=== PATIENT | male | born 1960 | race Caucasian/White ===

== ENCOUNTER 2017-04-15 06:07 | Inpatient (IN) | payer OTHER ==
[~2017-04-15] VITALS: Ht 188 cm; Wt 92.6 kg
--- NOTE | ~2017-04-15 | DS ---
PATIENT'S NAME: HAMILTON SORTO [facility] AGE: 56 Y [address] ROOM: [id number] [place], [place] [id number] LOCATION: GICU ADMIT DATE: 04/15/2017 Discharge Summary DISCHARGE DATE: 04/18/2017 FAMILY PHYSICIAN: Marcus Simon MD ATTENDING PHYSICIAN: Mal Nava V PRINCIPLE FINAL DIAGNOSIS: T3, N0, MX squamous cell carcinoma, right tonsil base of tongue. POSTOPERATIVE DIAGNOSIS: T3, N0, MX squamous cell carcinoma, right tonsil base of tongue. OPERATION/PROCEDURE: 1. Direct laryngoscopy with biopsy, right tonsil base of the tongue mass. 2. Emergent tracheostomy. CONSULT: Speech Pathology. COMPLICATIONS: None. DESCRIPTION OF HOSPITAL COURSE: The patient was admitted to [facility] on 04/15/2017 after a scheduled outpatient direct laryngoscopy with biopsy. The patient was noted difficult intubation with evidence of significant upper airway obstruction. Emergent tracheostomy was performed, and the patient was admitted to PACU. The patient's postoperative course was uncomplicated. Started on a clear liquid diet on 04/16/2017. The patient's diet was advanced. A cuffed trach tube was changed to a cuff with #6 fenestrated trach tube on 04/17/2017. The patient tolerated soft regular diet, was discharged home on 04/18/2017 after appropriate trach care teaching, ordering of trach supplies, and home health consult. The patient was scheduled for Radiation Therapy/Medical Oncology consultation as an outpatient. He was to follow up with Dr. Nava in 1 week. MAL NAVA MD TVC/modl /[id number] d: 04/26/17 0240 t: 05/20/17 0957, DISCHARGE SUMMARY
--- NOTE | ~2017-04-15 | OR ---
PATIENT'S NAME: HAMILTON SORTO [facility] AGE: 56 Y [address] ROOM: [place] [address] LOCATION: GICU ADMIT DATE: 04/15/2017 OR/Procedure Report DISCHARGE DATE: FAMILY PHYSICIAN: OTONIEL MORRIS MD ATTENDING PHYSICIAN: Mal Nava V SURGEON: Mal Nava MD MECHANICAL PRODUCT ENGINEER: Zbigniew Ríos MD-Student, PGY5. DATE OF PROCEDURE: 04/15/2017 PREOPERATIVE DIAGNOSIS: Probable T3 N0 squamous cell carcinoma, right tonsil base of tongue. POSTOPERATIVE DIAGNOSES: 1. Probable T3 N0 squamous cell carcinoma, right tonsil base of the tongue. 2. Upper airway obstruction. OPERATION/PROCEDURE: 1. Emergency tracheostomy. 2. Direct laryngoscopy with biopsy. 3. Rigid esophagoscopy. ANESTHESIA: General endotracheal anesthesia. ESTIMATED BLOOD LOSS: Minimal. COMPLICATIONS: None. FINDINGS: The patient had large exophytic mass occupying the right tonsil extending to the right base of tongue with extensive base of tongue fibrosis. DESCRIPTION OF PROCEDURE: The patient was taken to the operating room, laid in supine position. The patient underwent general mask anesthesia. The patient was unable to be intubated. Using the conventional techniques, videoscope attempted bronchoscopy per Dr. Nava was unsuccessful. It was elected to perform an urgent trach. After further attempts, 6.0 endotracheal tube was able to be passed. Upon intubation, it was elected to do emergent tracheostomy due to his significant potential risks for airway compromise. The patient's neck was prepped and draped in usual sterile fashion using Betadine solution. Proposed incision line marked and infiltrated with 2% lidocaine with epinephrine solution. Approximately, 2 cm horizontal neck incision was performed using #15 blade. Subcutaneous tissues were divided using #15 blade Bovie electrocautery. Strap muscles were divided in the midline and reflected right and left respectively. The thyroid isthmus was divided using Bovie electrocautery. Trach hook was placed within the cricoid PATIENT'S NAME: HAMILTON SORTO [facility] AGE: 56 Y [address] ROOM: [place] [address] LOCATION: GICU ADMIT DATE: 04/15/2017 OR/Procedure Report DISCHARGE DATE: FAMILY PHYSICIAN: OTONIEL MORRIS MD ATTENDING PHYSICIAN: aMl Nava V cartilage. Trachea was reflected superiorly. The inferiorly based flap was then performed using a #11 blade curved Rawls scissors. The flap was secured to the inferior skin with 0 Tycron sutures. A #6 balloon fenestrated trach was then placed under direct vision without difficulty. The balloon was inflated and trach secured using 2-0 silk suture trach straps. The patient tolerated the procedure well. Neosporin ointment and trach dressing were placed. The table was rotated to 90 degrees. The right shoulder roll was placed. Head was placed in a sniffing position. Laryngoscope was inserted within the oropharynx, directed down into the left lateral pharyngeal wall. The left piriform sinus noted to be within normal limits. Vallecula was noted to be abnormal extending past the midline. The patient had large exophytic mass occupying the right tonsil extending to the base of tongue infiltrating into the base of tongue. Mass was suspected approximately 6 to 8 cm in size. Posterolateral pharyngeal wall was mobile without significant mass or lesion. The right piriform sinus was visualized to be within normal limits. Epiglottis was edematous and swollen. The area of epiglottic folds were without abnormality. The scope was withdrawn. Rigid esophagoscope was inserted within the oral cavity, directed down into the left lateral pharyngeal wall. It was directed into the left piriform into the opening of the esophagus due to significant difficulty with hyperextension of the neck. The soft scope was passed through the cricopharyngeus into the upper cervical esophagus. This was noted to be normal. The soft scope was withdrawn. No significant mucosal abnormalities. Again, there was a significant amount of the intra-arytenoid area epiglottic edema. Esophagoscope was withdrawn. Laryngoscope was placed back in the oral cavity. Several biopsies were obtained of the right tonsil. The patient tolerated the procedure well. The patient was aroused and discharged from the operating room to the recovery room with #[address] trach in place. MD AMAYA SOLORIO/yoanal /[id number] d: 04/15/17 2246 t: 04/25/17 1844, OPERATIVE SUMMARY
[~2017-04-15 06:07] MED LIST: ASPIRIN (CHILDR81 MG PO; FISH OIL 1,0001 EACH PO; GLUCOSAMINE CH1 EAC2 PO; OMEPRAZOLE40 MG PO; THERA-VITE W/ B1 TAB PO
[2017-04-15] MEDS ORDERED: ULTRAM50 MG PO (06:49)
[2017-04-15] MEDS ORDERED: TYLENOL325 MG PO (06:49)
[2017-04-15] MEDS ORDERED: CHLORASEPTIC MA30 ML PO (06:50)
[2017-04-15] MEDS ORDERED: TYLENOL EXTRA500 MG PO (06:51)
--- NOTE | 2017-04-15 16:53 | NUR ---
PT A/OX3, NO FOCAL DEFICITS, DENIES ANY N/T. VSS, AFEBRILE, NO EDEMA, PULSES 2+ T/O, DENIES ANY CP. 28% TM WITH FENESTRATED TRACH PLACED PER MD, DRSG CHANGED WITH MODERATE AMT OF BLOODY DRNG, PT HAS STRONG COUGH, AND DENIES ANY SOB OR ROMERO. VOIDS PER BR, NPO AT THIS TIME. BS PRESENT, NO BM. PIV TO L) FA WITH NS WITH KCL AT 110MLS/HR. DEMEROL AND PHENERGEN GIVEN X1 AND MS 2MG GIVEN X1 FOR THROAT PAIN WITH RELIEF HAD.
--- NOTE | 2017-04-16 05:56 | NUR ---
PT RESTING THROUGHOUT SHIFT. MORPHINE GIVEN FOR PAIN X2 DOSES THIS SHIFT. AMBULATING IN ROOM FOR THIS RN. TRACH CONTINUES TO HAVE THICK BLOODY SECRETIONS; TRACH CARES PERFORMED, SUCTION PRN; PATIENT TOLERATED WELL. MARII AUSTIN RN
--- NOTE | 2017-04-16 15:27 | NUR ---
Significant Event: Patient is A/Ox3. C/O some numbness-tingling on tip of tongue, gotten a little better throughout the day. SR-SB with HR low 50's-56. VS WNL. Trach mask at 28%, spo2 >97%. Lungs asculated clear/diminished throughout. Active bowel sounds, no BM this shift. Voids per urinal. Standby assist to BR. Afebrile. PRN [place] 1 tab given x2. PRN 2mg morphine given x2. Deep suctioned trach x1 time, some bloody drainage present. Follow up: Needs trach care teaching. Care management following up with needs to do home trach care.
--- NOTE | 2017-04-16 16:31 | NUR ---
Reviewed [facility] chart. It appears that he lives in [place] with his . He has [facility] listed as his insurance carrier. I noticed in his progress notes that MD is planning on sending him home with a trach. This is new for him. I talked with Maria Del Carmen SALVADOR and Courtney RN about making sure that his trach teachings were started here as that is what MD had ordered. I let them know that I would meet with Mateo later today or tomorrow to talk with him about him going home with [facility] so they could help him with trach cares and teachings or if he felt like he could manage at home on his own based on his teaching here. I also spoke with Humera ECHOLS and asked that she work with nursing to make sure that they were doing teachings with Mateo on how to care/suction his new trach so if he did go home without [facility], he would know what to do and how to care for it. I obtained a list of trach needs for the home setting for MD to use a guideline for order filling out scripts when José went to go home. CM to continue to follow and assist.
--- NOTE | 2017-04-17 03:09 | NUR ---
Significant Event: PATIENT IS A/OX3. FOLLOWS COMMANDS. VSS. SR-SB 50'S-70'S. SBP 120'S-130'S. TRACH MASK AT 28%, O2 SATS >96%. ACTIVE BS. NO BM DURING SHIFT. VOIDS PER BR. AFEBRILE. PRN NORCO GIVEN X2. MORPHINE GIVEN X1. NO SIGNIFICANT EVENTS DURING SHIFT. Follow up: CARE MANAGEMENT FOLLOWING UP ON HOME WITH TRACH CARE SUPPLIES AND NEEDS TRACH CARE TEACHING. PRINTED TRACH INFORMATION DURING SHIFT, NEEDS TO BE EXPLAINED TO PATIENT, WHILE PT IS AWAKE.
--- NOTE | 2017-04-17 16:47 | NUR ---
Call from Noelle SALVADOR this morning wanting to know where I was at on lining up supplies and HHC for Mateo. Let her know that I hadn't go to talk wiht Mateo yet, but when I did I would let her know. I did ask of any trach teachings had been done yet and to her knowledge, none had been started. I let her know that this needed to be started by RN and RT as he was planning on being dismissed on Saturday and it was important that he knows how to care for it. She states she is working with RT and ST to do teaching. I later came up to the floor, reviewed Porfirio' chart. No scripts for trach supplies have been filled out. I introduced myself and CM role to Mateo. He lives in [place] with his and is planning on returning there upon dismissal. I talked with him about going home with the trach and that staff was supposed to be working with him on cares and teaching him about it. He says that he has only had one person see him, ST, and then he was just given handouts of papers to read and that is all. I let him know I would be addressing this with staff to make sure that he was getting more teachings than that. We talked about HHC and he says that he is open to having HHC. He has no prefernce on which HHC agency we use. I made a referral to [facility]. Faxed/called in referral to Jaimee after leaving Porfirio' room. Will call her back tomorrow with more of an update on his status of dismissal date as well. Also let Mateo know I would call around to DME carriers here in town to see which ones offered trach supplies that he would need as he has no preference on where he gets supplies from. He tells me that his will be up tonight and staff is supposed to work with him then on doing teachings/cares with his and him. He denies any other questions, needs or concerns. Upon leaving his room. I spoke with his RN Noelle, let her know I was working on getting HHC lined up and also finding a DME facility in town that offered the trach supplies that he needed. Also confirmed with her that he and his were going to get training tonight. Noelle tells me that she plans on doing teachings with him and if she is still here tonight when arrives or passing it along to the night RN that cares/teachings will need to be addressed. I phoned over to [facility], they tell me that they do not carry trach supplies. I phoned over to [facility], talked with Joanie, she says that they do carry trach supplies, but it would need to be pre-authed by his insurance, which she would do if I faxed her the facesheet and paperwork would need to be filled out by MD. I faxed her over [facility] facesheet to start working on the pre-auth and she faxed me over the needed paperwork to put on the chart for MD to fill out. Paperwork was obtained and placed on the chart along with a detailed note for MD to make sure it was filled out correctly. F2F was also left on the chart for him to fill out for RN/ST needs and sign as well as a list of trach supplies that would need scripts wrote out. MODESTO Dunne phoned to several differnt people to see if was going to round yet today to do the paperwork, but was told it was his day off today so he wouldn't be around until tomorrow to do any of the needed paperwork or filling out any scripts. I updated MODESTO Dunne and MODESTO Drake to all of the above. Called to Humera in [place] to make sure that she was working with RNs to do teachings and also make sure that she was working on any home O2 needs that he might have when he is ready to dismiss. She says that she will check into things. CM to continue to follow and assist.
--- NOTE | 2017-04-17 18:56 | NUR ---
Significant Event:Up in chair. A/Ox3. Petros given for discomfort. Trach mask at 28% Sats >90%. LS coarse clears with cough. Expectorates bloody drng and now greenish with blood tinge. Foul odor noted. #6 shiley cuffed intact. Trach drsg taught to patient. Patient did well, will need one more follow up drsg change performed by patient for reassurance. Abd soft with active bowel tones passing gas. No stool.
--- NOTE | 2017-04-18 05:24 | NUR ---
Significant Event: Patient is alert and oriented x 3. Up independently in room. VSS. Tracheostomy intact. 6 manoj, cuffed. Patient coughing up green, thick mucous. Voiding well. Left hand IV with D5 1/2 NS with 20 meq of KCL running at 110 ml/hr. [place] given for pain x 3, last at 0407. On regular diet. No BM since 04/14, passing gas. No stool softners ordered, note on chart for MD to address. Patient is cooperative with cares. Follow up: Home on Saturday. Needs more teaching on trach suctioning and dressing changes.
--- NOTE | 2017-04-18 11:07 | NUR ---
LATE ENTRY: A - PT SCREENED D/T MST. HAD EMERGENT TRACH 04/15. POSSIBLE DISCHARGE TODAY. PT REPORTED 15# WEIGHT LOSS, TIME FRAME UNK. UBW OF 220# VS CBW 198#. HT: 185.42 CM, WT: 198#, BMI: 26.2, IBW: 83.6 KG, %IBW: 108% NO LABS. MEDS: DEMEROL. DIET: REGULAR WITH ENSURE ENLIVE TID. HAD 100% OF BREAKFAST AND LUNCH 04/17, ORAL SUPPLEMENT 100% X1 NOTED. PT REPORTED GOOD APPETITE AND LIKES ENSURE ENLIVE. DOES DRINK SOME KIND OF PROTEIN SHAKE AT HOME. LEFT SOME ORAL SUPPLEMENT COUPONS WITH PATIENT. HAVING BREAKFAST DURING VISIT, DEFERRED NFPE. EST NEEDS: [id number] KCAL (25-30 KCAL/KG IBW), 84-101 GRAMS PROTEIN (1-1.2 GRAMS/KG IBW), FLUID NEEDS: 1ML/KCAL D - UNINTENTIONAL WEIGHT LOSS RELATED TO ALTERED APPETITE SECONDARY TO DIAGNOSIS EVIDENCED BY 15# WEIGHT LOSS PER PT. I - PT AGREED TO ENSURE ENLIVE TID. M/E - GOAL: PT WILL CONTINUE TO TOLERATE >75% OF MEALS AND AT LEAST ONE ORAL SUPPLEMENT PER DAY IN 5-7 DAYS.
--- NOTE | 2017-04-18 13:31 | NUR ---
Significant Event: PT ALERT AND ORIENTED X3. ABLE TO MAKE NEEDS KNOWN. NEURO INTACT. UP WITH STAND-BY ASSIST IN ROOM. VOIDING WITHOUT DIFFICULTY. LAST BM ON 04/14; BOWEL SOUNDS PRESENT X4; STATES THAT HE IS NOT UNCOMFORTABLE. FAIR APPETITE. TRACH INTACT; TRACH TEACHING DONE PER RESPIRATORY THERAPIST AND THIS RN AND PT VERBALIZED UNDERSTANDING. IV TO L)HAND INTACT. PRN NORCO HELPING WITH PAIN. SAW THE PT AND WROTE ORDERS FOR THE PT TO BE DISMISSED HOME TODAY. TO SEE THE PT PRIOR TO DISMISSAL. WAITING TO HEAR FROM CARE MANAGEMENT REGARDING TRACH SUPPLIES AND APPROPRIATE SCRIPTS. Follow Up: PLAN TO DISMISS TO HOME TODAY
--- NOTE | 2017-04-18 14:56 | NUR ---
VM from this morning letting me know that he had filled out all the needed paperwork for Mateo to go home with his trach supplies and also filled out the information for HHC. I worked with Mckayla(ST), Viral(RT), Andrew Huynh(RT Medical Record Consultant), Courtney Vásquez(CM Director), Vibha(ICU certified performance technologist) and Mckayla (Primary RN) with trying to get all the needed information gathered to get Porfirio' dismissal figured out. I called over to [facility], Joanie was gone so I talked with Rosalinda. Rosalinda tells me that they got the fax I sent over with the completed paperwork and they are working with to get the other needed information over to them so they can submit it to Porfirio' insurance and then once that is done she will call me back. Nursing, RT and ST are all working on training/teachings/cares with Mateo to ensure that he can care for his trach when he goes home. Viral with RT was following up with in re:if Mateo needed to go home with O2 or not. Viral later told me that he talked with and the home O2 was not going to be needed. Faxed over dismissal instructions, F2F and other information to [facility], [phone]. I called and left a VM with Jaimee jesse:his dismissal. She was out of the office so I called over to the [facility] Office, talked with Rebecca as Silvaan was out on a home visit, confirmed with Rebecca that [facility] would follow for HH needs. Later called and talked with Silvana, she says that they will do a phone visit with him on Saturday (tomorrow) and then admit him on Saturday. Let her know that was fine. Relayed this with RN Mckayla who was going to share it with Mateo and his when she went over dismissal instructions with him. Talked again with Rosalinda at [facility], she says that they have got insurance approval and the supplies are all ready for to pick up man. I phoned and talked with his , she is on her way to town so she will go and pick up man all the supplies. I gave her my contact information for any additional questions she might have. Went up to the floor, MODESTO Dunne was working on getting his follow up appointments made for him. Viral ECHOLS was doing teachings with Mateo and . I stopped in and gave them the number for [facility] and [facility] incase they would need this for down the road. They denied any other questions, needs or concerns. CM to continue to follow and assist. Plan home with [facility] and support.
[2017-04-18] MEDS ORDERED: NORCO 5-325 TA1 EACH PO (15:02)
[2017-04-18] MEDS ORDERED: KEFLEX500 MG PO (15:03)
--- NOTE | 2017-04-18 17:21 | NUR ---
D: EMERGENT TRACHEOTOMY I: OX R: CONTACTED DR MENENDEZ ABOUT WHETHER OR NOT HE WANTED PT TO GO HOME WITH HUMIDIFICATION, DR MENENDEZ SAID HE DID NOT WANT HIM TO, DISCUSSED WITH PT ABOUT SUCTIONING HIS TRACH, WITNESSED PT DO THIS HIMSELF & ANSWERED QUESTIONS HE HAD P: PT WAS DISMISSED HOME
== END 2017-04-18 15:30 | disposition disaster alternative care site (69) | DRG 4 ==
LOC: GICU 06:07 → GSDC 06:07 → GICU 06:08
PROVIDERS: ADMIT Otolaryngology
PROC: 0B113F4 Bypass Trachea to Cutaneous with Tracheostomy Device, Percutaneous Approach (ICD-10-PCS; principal; 2017-04-15)
PROC: 0CBM8ZX Excision of Pharynx, Via Natural or Artificial Opening Endoscopic, Diagnostic (ICD-10-PCS; principal; 2017-04-15)
PROC: 0DJ08ZZ Inspection of Upper Intestinal Tract, Via Natural or Artificial Opening Endoscopic (ICD-10-PCS; principal; 2017-04-15)
DX: C44.92 Squamous cell carcinoma of skin, unspecified (principal); J98.8 Other specified respiratory disorders; R06.00 Dyspnea, unspecified
CPT/HCPCS: C9113; J0131; J0171; J2001; J2175; J2270; J2550; J3010; J3480; J7030

== ENCOUNTER → 2017-05-06 | Outpatient (CLI) | payer OTHER ==
[~2017-05-06] MED LIST changes: +CHLORASEPTIC MA30 ML PO; +KEFLEX500 MG PO; +NORCO 5-325 TA1 EACH PO; +TYLENOL EXTRA500 MG PO; +TYLENOL325 MG PO; +ULTRAM50 MG PO
== END | disposition disaster alternative care site (69) ==
LOC: GKIC 09:41
DX: C01 Malignant neoplasm of base of tongue (principal); R59.0 Localized enlarged lymph nodes; R93.8 Abnormal findings on diagnostic imaging of other specified body structures
CPT/HCPCS: A9552